=== PATIENT | female | born 1960 | race Caucasian/White ===

== ENCOUNTER → 2016-11-06 | Outpatient (CLI) | payer BC ==
[2014-04-06 14:49] VITALS: BP 111/73
[~2016-11-06] MED LIST: ASPI-630 PO; ATOR20TA58 PO; CELE200C PO; CETI10TA22 PO; FERR-26 PO; GABA-586 PO; HYDR-2762 PO; HYDR-971 PO; LEVO75TA5 PO; METF500T4 PO; METO50TA2 PO; MONT10TA9 PO; PANT40TA5 PO; TRIA1TAB3 PO; VIT1CAPS10 PO; WARF-78 PO
--- NOTE | 2016-11-06 10:32 | KCIC ---
EXAM: Bilateral screening mammogram. HISTORY: 56-year-old female presents for screening mammography. TECHNIQUE: Full-field digital craniocaudal and mediolateral oblique views of both breasts are obtained for evaluation. Computer aided detection with Mastodon CD software version 9.3 was applied. COMPARISON: There is no prior study available for comparison. This exam serves as a baseline mammogram. BREAST PARENCHYMAL DENSITY: Level B - Scattered fibroglandular densities. FINDINGS: There are areas of nodularity within both breasts, predominantly and the 5:00 anterior right breast and 2:00 posterior to mid left breast. There are several benign calcifications. There is no architectural distortion. IMPRESSION: BI-RADS Category 0: Additional imaging needed. RECOMMENDATION: Further evaluation with full field true lateral views of both breasts and bilateral breast sonography to further assess areas of nodularity is recommended. The patient will be contacted to return for additional imaging. If your mammogram demonstrates that you have dense breast tissue, which could hide abnormalities, and if you have other risk factors for breast cancer that have been identified, you might benefit from supplemental screening tests that may be suggested by your ordering physician. Dense breast tissue, in and of itself, is a relatively common condition. This information is not provided to cause undue concern, but rather to raise your awareness and to promote discussion with your physician regarding the presence of other risk factors, in addition to dense breast tissue. A report of your mammography results will be sent to you and your physician. You should contact your physician if you have any questions or concerns regarding this report. Mammography is a sensitive method for finding small breast cancers, but it does not detect them all and is not a substitute for careful clinical examination. A negative mammogram does not negate a clinically suspicious finding and should not result in delay in biopsying a clinically suspicious abnormality. PQRS compliance statement - Patient information was entered into a reminder system with a target due date for the next mammogram. "Our facility is accredited by the [employer] Mammography [employer]." Electronically signed by: Tonya Reyes MD (11/06/2016 10:29 AM) [id number]
== END | disposition home or self-care (01) ==
LOC: KCIC MAMMO 09:03
PROVIDERS: ATTEND Internal Medicine
DX: Z12.31 Encounter for screening mammogram for malignant neoplasm of breast (principal)
CPT/HCPCS: G0202; 77067

== ENCOUNTER → 2016-11-19 | Outpatient (CLI) | payer BC ==
[2014-04-06 14:49] VITALS: BP 111/73
--- NOTE | 2016-11-19 15:52 | KCIC ---
Bilateral diagnostic digital mammograms: Reason for examination: Nodular densities bilaterally. Comparison is made to previous study dated 11/06/2016. Additional lateral views were obtained bilaterally. A nodule persists in the lower right breast at approximately the 6:00 position. Further evaluation with ultrasound will follow. In the left breast, a small nodule persists at the 3:00 B position. Further evaluation with ultrasound will follow. IMPRESSION: Small nodular densities persist at the 6:00 B position of the right breast and 3:00 B position of the left breast. Ultrasound to follow. BI-RADS Category 0: Incomplete. Ultrasound to follow. Bilateral breast ultrasound: Bilateral breast ultrasound was performed with attention to the areas of mammographic concern and axilla. There is a complex appearing hypoechoic lesion at the 6:00 position 6 cm from the nipple measuring 5.2 mm in greatest dimension which will correspond to the area of mammographic concern. This may represent cysts with debris however further evaluation with aspiration/biopsy is recommended. No other cystic or solid lesions are seen. No abnormal appearing lymph nodes are seen in the right axilla. In the left breast at the 3:00 position 9 cm from the nipple, there appears to be a small hypoechoic lesion with poorly defined margins measuring approximately 1.2 cm in greatest dimension. Further evaluation with ultrasound-guided biopsy is recommended. No other cystic or solid lesions are seen. No abnormal appearing lymph nodes are seen in the axilla. IMPRESSION: Small nodular density in the right breast at the 6:00 position which may represent a complex cyst. Recommend ultrasound-guided aspiration/biopsy. 12 mm hypoechoic lesion in the 3:00 position of the left breast. Recommend ultrasound-guided biopsy. BI-RADS Category 4: Suspicious. These findings were given to the patient and the patient was advised to follow-up with her clinician. The patient's physician was called and message left for nurse Bell Yen on 11/19/2016 at 4051. "Our facility is accredited by the [employer] Mammography [employer]." Electronically signed by: Tamie Nina MD (11/19/2016 3:48 PM) [id number]
== END | disposition home or self-care (01) ==
LOC: KCIC MAMMO 09:39
PROVIDERS: ATTEND Internal Medicine
DX: N63 Unspecified lump in breast (principal)
CPT/HCPCS: 76641; G0204; 77066

== ENCOUNTER → 2016-12-15 | Outpatient (CLI) | payer BC ==
[2014-04-06 14:49] VITALS: BP 111/73
[~2016-12-15] VITALS: Ht 152.4 cm; Wt 83.9 kg
[~2016-12-15] MED LIST changes: +CYCL10TA2 PO; +ESCITALOPRAM OX10 MG PO; +FAMO40TA4 PO; +LIDOCAINE 1% / SOD BICARB 8.4% 20 ML VIAL. IJ ONE; +LIDOCAINE 2%/EPI 1:100,000 20 ML VIAL. IJ ONE; +LISI-338 PO
--- NOTE | 2016-12-16 13:55 | PATHOLOGY ---
PATHOLOGY REPORT * * * * * * * * FINAL DIAGNOSIS: A. Breast tissue, left breast mass 3:00 needle biopsies: - Fibrocystic changes, focal, with the following components: - Stromal fibrosis. - Mild duct ectasia. - Cystic change, focal. - Apocrine metaplasia, focal. B. Breast tissue, right breast mass 6:00 needle biopsies: - Proliferative fibrocystic changes with the following components: - Moderate / florid ductal epithelial hyperplasia, focal. - Cystic change. - Papillary apocrine metaplasia. - Stromal fibrosis. - Mild duct ectasia. COMMENT: Sections of the left breast mass needle biopsy predominantly reveal fatty breast tissue. There are scattered small foci of fibrocystic changes. Sections of the right breast mass needle biopsy reveal fibrocystic changes with focal moderate/florid ductal epithelial hyperplasia, cystic change, and papillary apocrine metaplasia. There is no atypia or evidence of malignancy. (JPM:mml; 12/16/2016) REPORT ELECTRONICALLY SIGNED BY: Vicente Saldaña M.D. DATE/TIME: 12/16/2016 13:54 * * * * * * * * GROSS PATHOLOGY: A. Received in formalin labeled "White, Priscila, left," are multiple needle cores of yellow-bocanegra fibrofatty tissue measuring 2.3 x 2.0 x 0.4 cm in aggregate dimensions. The tissue is submitted in its entirety in cassette A1. The cold ischemic time is 5 minutes. The total formalin fixation time is 12 hours and 5 minutes. B. Received in formalin labeled "White, Priscila, right," are multiple needle cores of yellow-bocanegra fibrofatty tissue measuring 1.3 x 1.0 x 0.3 cm in aggregate dimensions. The tissue is submitted in its entirety in cassette B1. The cold ischemic time is 5 minutes. The total formalin fixation time is 11 hours and 50 minutes. (JPM; 12/15/16) INITIAL CPT CODE(S): A; 58473 B; 93245 Professional services performed by [facility] at [address] [address] Technical services performed by [facility] at [address] [place] [address], [address], [place] [address]. SPECIMEN(S) RECEIVED: A.Left breast mass, 3 o'clock, 1.2cm B.Right breast mass, 6 o'clock, 5.2mm CLINICAL HISTORY: Bilateral breast masses PATIENT: PRISCILA RICARDO /AGE: 408/25/1960 (Age: 56) PATIENT #: [id number] ALT CASE #: SPECIMEN COLLECTION DATE: 12/15/2016 SPECIMEN RECEIVED DATE: 12/15/2016 [facility] - [address] [place] [address] - PHONE: [phone] * * * END OF REPORT * * *
--- NOTE | 2016-12-19 13:03 | RAD ---
Ultrasound-guided left breast biopsy, 12/15/2016: History: Suspicious left breast finding Previous mammograms demonstrated scattered fibroglandular densities in both breasts in a nodular pattern. A previous ultrasound study demonstrated a vague area of slightly decreased echogenicity at the 3:00 location the left breast which was thought to correspond to one of the mammographic opacities. Under local anesthesia, aseptic conditions and sonographic guidance the [employer]uros ATEC biopsy instrument was passed into this region via a lateral approach. Multiple 12-gauge vacuum-assisted core samples were obtained and sent to pathology for evaluation. A biopsy marker was then deposited at the biopsy site. The biopsy instrument was then removed and hemostasis obtained. Two-view digital mammograms were then obtained on a separate mammographic unit for documentation of the location of the biopsy marker. The marker lies approximately 2 cm inferior and medial to the most prominent mammographic opacity in the upper outer quadrant. Ultrasound-guided right breast biopsy, 12/15/2016: Previous studies demonstrated a small superficial hypoechoic nodule resembling a complicated cyst at the 6:00 location the right breast. Under local anesthesia, aseptic conditions and sonographic biopsy the Suros ATEC biopsy site was passed into this lesion via an inferolateral approach. Multiple 12-gauge vacuum-assisted samples were obtained and sent to pathology for evaluation. The lesion disappeared during the biopsy process. A biopsy marker was then deposited at the biopsy site. The biopsy instrument was removed and hemostasis obtained. Two-view digital mammograms were then obtained on a separate mammographic unit for documentation of the location of the biopsy marker. The marker appears to correspond in location to one of the lower breast nodules seen on the preliminary mammograms. The patient tolerated the procedures well and left the department in good condition. Note: 1. The subsequent pathology report from the right breast biopsy indicated the presence of fibrocystic change with epithelial hyperplasia and apocrine metaplasia and no evidence of malignancy. 2. The subsequent pathology report from the left breast biopsy indicated fibrocystic change without evidence of malignancy. Judging from the position of the left breast biopsy marker, the biopsied tissue in the left breast may not correspond to the most prominent nodular opacity seen on the mammograms. The fibroglandular pattern in both breasts is generally nodular in character. In the absence of previous mammograms to confirm stability, follow-up bilateral mammography in 6 months and then at yearly intervals is suggested. BI-RADS 3-probably benign findings
== END | disposition home or self-care (01) ==
LOC: US 15:39
PROVIDERS: ATTEND Internal Medicine
DX: N63 Unspecified lump in breast (principal); N60.81 Other benign mammary dysplasias of right breast
CPT/HCPCS: 19081; 76942; 88305; C1713; G0204; 77066